=== PATIENT | male | born 1980 | race Caucasian/White ===

== ENCOUNTER → 2018-06-29 | Outpatient (CLI) | payer OTHER ==
[~2018-06-29] MED LIST: ERYTHROMYCIN E3.5 G3 OPHTHALMIC; FLONASE 0.05%50 MCG; HYDROCODON-ACE1 EAC8 PO
== END ==
LOC: M.CT 07:46
DX: N30.20 Other chronic cystitis without hematuria (principal); R10.32 Left lower quadrant pain